=== PATIENT | male | born 1970 | race Caucasian/White ===

== ENCOUNTER 2017-04-24 14:37 | Emergency (ER) | payer BC ==
[~2017-04-24] VITALS: Ht 180.3 cm; Wt 94.0 kg
[2017-04-24 14:41] VITALS: TEMP 36.6; Ht 180.3 cm; Wt 94.0 kg
[2017-04-24] MEDS ORDERED: OPTIRAY 320 IV PRN (15:00)
[2017-04-24 15:38] LABS: ISTAT CREATININE 0.8 mg/dl (0.6-1.3); ISTAT IONIZED CALCIUM 1.25 mmol/l (1.12-1.32)
--- NOTE | 2017-04-24 16:08 | EMERGENCY ROOM VISIT NOTE ---
History Report prepared by Chandler: Sarika Cool Under the Supervision of: Dr. Chava Morgan M.D. First contact with patient: 14:47 Chief Complaint: RECTAL PAIN Stated Complaint: PAIN FROM HEMMEROIDS Nursing Triage Summary: triage note; pt reports "i think i have hemorrhoids or a tear." pt was seen at urgent care on wednesday and was told to follow up with pcp and they were going to treat pt for hemorroids. History of Present Illness The patient is a 47 year old male who presents to the Emergency Room with complaints of intermittent rectal pain beginning 1 week ago. The patient states that he has been having rectal pain that is worse with bowel movements for the last few days. He reports that hew as seen at urgent care 4 days ago and was told to follow up if he did not have any improvement of his pain with a stool softener. He complains of blood in the stool last night. The patient denies any constipation, abdominal pain, nausea, vomiting. He notes that he has bowel movements twice a day. Source of History: patient Onset: 1 week ago Position: other (rectum) Symptom Intensity: severe Timing: intermittent Modifying Factors (Worsening): other (bowel movements) Associated Symptoms: No nausea, No vomiting, No abdominal pain Note: He complains of blood in the stool last night. The patient denies any constipation. Review of Systems See HPI for pertinent positives & negatives. A total of 10 systems reviewed and were otherwise negative. Past Medical & Surgical Medical Problems: (1) No known problems Family History No pertinent family history stated. Social History Smoking Status: Never Smoker Marital Status: Housing Status: lives with family Occupation Status: employed Current/Historical Medications No Active Prescriptions or Reported Meds Allergies Coded Allergies: No Known Allergies (Unverified , 04/24/17) Physical Exam Vital Signs Date Time Temp Pulse Resp B/P (MAP) Pulse Ox O2 Delivery O2 Flow Rate FiO2 04/24/17 17:24 78 20 157/98 98 Room Air 04/24/17 14:41 36.6 85 18 153/90 97 Room Air Physical Exam CONSTITUTIONAL/VITAL SIGNS: Reviewed / noted above. GENERAL: Non-toxic in appearance. INTEGUMENTARY: Warm, dry, and [place]. HEAD: Normocephalic. EYES: without scleral icterus or trauma. ENT/OROPHARYNX: clear and moist. LYMPHADENOPATHY/NECK: Is supple without lymphadenopathy or meningismus. RESPIRATORY: Lungs clear and equal. CARDIOVASCULAR: Regular rate and rhythm. GI/ABDOMEN: Soft and nontender. No organomegaly or pulsatile mass. No rebound or guarding. Normal bowel sounds. EXTREMITIES: Warm and well perfused. BACK: No CVA tenderness. NEUROLOGICAL: Intact without focal deficits. PSYCHIATRIC: normal affect. MUSCULOSKELETAL: Normally developed with good muscle tone. RECTAL: Thrombosed external hemorrhoid at the 3 oclock position with tenderness on exam. Medical Decision & Procedures ER Provider Diagnostic Interpretation: CT results as stated below per my review and radiologist interpretation: PELVIS W/IV CONT ONLY (CT) FINDINGS: Perirectal region is unremarkable. There is no evidence of perirectal abscess. The levator sling is intact. The cutaneous fat shows unremarkable dense density characteristics. Bowel pattern within the pelvis is nonobstructive. Bladder is midline. There is no free fluid within the pelvic cul-de-sac. Osseous structures appear unremarkable. IMPRESSION: Negative study. No evidence for perirectal pathology or infiltrative change based on CT criteria. The above report was generated using voice recognition software. It may contain grammatical, syntax or spelling errors. Electronically signed by: Baldomero Long M.D. 04/24/2017 4:37 PM Dictated Date/Time: 04/24/2017 4:34 PM Laboratory Results Test 04/24/17 15:11 Bedside Hemoglobin 17.0 g/dl (14.0-18.0) Bedside Hematocrit 50 % (42-52) Bedside Sodium 138 mEq/L (135-144) Bedside Potassium 3.9 mEq/L (3.3-5.0) Bedside Chloride 99 mEq/L (101-112) Bedside Total CO2 26 mEq/l (24-31) Anion Gap 17.0 mmol/L (16-25) Bedside Blood Urea Nitrogen 11 mg/dl (7-18) Bedside Creatinine 0.8 mg/dl (0.6-1.3) Bedside Glucose (other) 283 mg/dl (70-99) Bedside Ionized Calcium (Sukumar) 1.25 mmol/l (1.12-1.32) Laboratory results as stated above per my review. ED Course 1448: Previous medical records were reviewed. The patient was evaluated in room B8. A complete history and physical examination was performed. 1710: I reevaluated and updated the patient. 1715: Lidocaine/Epinephrine 20ml INFIL. 1727: On reevaluation, the patient is doing well. I discussed the results and findings with the patient. He verbalized agreement of the treatment plan. The patient was discharged home. Medical Decision Differential includes thrombosed hemorrhoid, rectal fissures, abscess, infection , Crohn's disease, ulcerative colitis,. This is a 47-year-old male who presents to the ED with a chief complaint of rectal pain. The patient has had the pain for about a week. He states that his pain is primarily with bowel movements. He denies any other significant symptoms. Has not had fevers, nausea, vomiting or abdominal pain. His vital signs are stable. His physical exam reveals a small thrombosed hemorrhoid in the 3 o'clock position. His exam is quite tender. His abdomen is soft and nontender. The rest of his exam was unremarkable. Point of care glucose was 283. Hemoglobin is normal. Chemistry panel kidney function are normal. CT scan did not show any abnormalities with regards to perirectal abscess or infection. The patient's symptoms are likely only secondary to a thrombosed hemorrhoid. The patient was also told about his elevated blood sugar. He states that it has been running high. He was advised to see his doctor about diabetes and blood sugar control. After discussing the benefits versus possible lack of benefit of incising thrombosed hemorrhoid since it has been greater than 72 hours, the patient decided on following up as an outpatient with general surgery. He was told to take [id number] pain medications and a stool softener. He is felt to be stable for discharge. Medication Reconcilliation Current Medication List: was personally reviewed by me Blood Pressure Screening Patient's blood pressure: Elevated blood pressure Blood pressure disposition: Elevated BP felt to be situational Impression Primary Impression: Hyperglycemia Additional Impression: Thrombosed external hemorrhoid Scribe Attestation The scribe's documentation has been prepared under my direction and personally reviewed by me in its entirety. I confirm that the note above accurately reflects all work, treatment, procedures, and medical decision making performed by me. Departure Information Dispostion Home / Self-Care Prescriptions No Active Prescriptions or Reported Meds Referrals No Doctor, Assigned (PCP) Moncho Parker M.D. Forms HOME CARE DOCUMENTATION FORM, IMPORTANT VISIT INFORMATION, WORK / SCHOOL INSTRUCTIONS Patient Instructions ED Hyperglycemia New Susp Diabetes, Hemorrhoids Thrombosed, My [facility] Additional Instructions Your blood tests revealed your blood sugar to be 283. This is concerning for diabetes. See your doctor this week for recheck. Drink plenty of fluids. Follow-up with [facility], Dr. Parker listed above, for further evaluation of your thrombosed hemorrhoid. Apply cortisone/hemorrhoid cream as you're doing now. Use a stool softener. Take Tylenol or Motrin as needed for pain. Problem Qualifiers
--- NOTE | 2017-04-24 16:38 | DIAGNOSTIC IMAGING REPORT ---
PELVIS W/IV CONT ONLY (CT) CLINICAL HISTORY: Rectal pain hemorrhage TECHNIQUE: Transaxial acquisition. Multi axial reformatted images. COMPARISON STUDY: None FINDINGS: Perirectal region is unremarkable. There is no evidence of perirectal abscess. The levator sling is intact. The cutaneous fat shows unremarkable dense density characteristics. Bowel pattern within the pelvis is nonobstructive. Bladder is midline. There is no free fluid within the pelvic cul-de-sac. Osseous structures appear unremarkable. IMPRESSION: Negative study. No evidence for perirectal pathology or infiltrative change based on CT criteria. The above report was generated using voice recognition software. It may contain grammatical, syntax or spelling errors. Electronically signed by: Baldomero Long M.D. 04/24/2017 4:37 PM Dictated Date/Time: 04/24/2017 4:34 PM
[2017-04-24] MEDS ORDERED: LIDOCAINE/EPINEPHRINE 1% 20 ML VIAL INFIL ONE (17:15)
[2017-04-24 17:24] VITALS: BP 157/98; PULSE 78; O2SAT 98
== END 2017-04-24 17:36 | disposition home or self-care (01) ==
LOC: C.EDB 14:38
DX: R73.9 Hyperglycemia, unspecified (principal); K64.5 Perianal venous thrombosis

== ENCOUNTER → 2017-04-29 | Outpatient (CLI) | payer BC ==
[2017-04-29 12:23] LABS: BASO % 0.3 %; BASO ABS # 0.02 K/uL (0-0.2); COMPLETE YES; EOS % 1.6 %; HEMATOCRIT 44.8 % (42-52); IG% 0.3 %; LYMPH % 29.3 %; LYMPH ABS # 1.96 K/uL (1.2-3.4); MEAN CELL VOLUME 86.7 fL (80-100); MEAN CORPUSCULAR HEMOGLOBIN 29.8 pg (25-34); MEAN CORPUSCULAR HGB CONC 34.4 g/dl (32-36); MEAN PLATELET VOLUME 10.9 fL (7.4-10.4); MONO % 9.9 %; NEUT % 58.6 %; PLATELET COUNT 243 K/uL (130-400); RED BLOOD COUNT 5.17 M/uL (4.7-6.1)
[2017-04-29 12:50] LABS: ALT/SGPT 26 U/L (12-78); BLOOD UREA NITROGEN 14 mg/dl (7-18); BUN/CREATININE RATIO 15.2 (10-20); CALCIUM 9.2 mg/dl (8.5-10.1); CARBON DIOXIDE 26 mmol/L (21-32); CHLORIDE 104 mmol/L (98-107); CHOLESTEROL 207 mg/dl (0-200); CREATININE 0.91 mg/dl (0.60-1.40); GLUCOSE 201 mg/dl (70-99); POTASSIUM 3.9 mmol/L (3.5-5.1); SODIUM 137 mmol/L (136-145)
[2017-04-29 12:55] LABS: ESTIMATED AVERAGE GLUCOSE 309 mg/dl; HA1C FLAG Normal (Normal)
[2017-04-29 12:59] LABS: ALB/GLOB RATIO 1.2 (0.9-2); ALKALINE PHOSPHATASE 98 U/L (45-117); AST/SGOT 15 U/L (15-37); CHOLESTEROL/HDL RATIO 5.4; HDL CHOLESTEROL 38 mg/dl; LDL CHOLESTEROL CALCULATED 146 mg/dl; TRIGLYCERIDES 117 mg/dl (0-150); VERY LOW DENSITY LIPOPROT CALC 23 mg/dl
== END | disposition home or self-care (01) ==
LOC: C.LABBFT 09:47
PROVIDERS: ATTEND Physician Assistant Medical
DX: R73.9 Hyperglycemia, unspecified (principal)

== ENCOUNTER → 2017-08-13 | Outpatient (CLI) | payer BC, OTHER ==
[2017-08-13 15:43] LABS: CREATININE RANDOM URINE 57.3 mg/dl
[2017-08-14 07:23] LABS: HEMOGLOBIN A1C 6.4 % (4.5-5.6)
== END | disposition home or self-care (01) ==
LOC: C.LAB1850 14:16
PROVIDERS: ATTEND Nurse Practitioner Family
DX: E11.9 Type 2 diabetes mellitus without complications (principal)

== ENCOUNTER 2021-07-24 12:28 | Inpatient (IN) ==
[2021-07-24] MEDS ORDERED: SODIUM CHLORIDE 0.9% 1000ML 2,000 ML IV ONE (12:50)
--- NOTE | 2021-07-24 13:04 | Emergency Department Note ---
Impression & Plan Pneumonia due to COVID-19 virus, Hypoxia, Weakness ED Provider Note NAME: ANAID LAMBERT AGE: 51 SEX: M : 1970 ARRIVES VIA: Ambulance INFORMANT: Patient ED PROVIDER(S): Jay Teran DO CHIEF COMPLAINT:covid PNA HPI: Patient is a 51-year-old unvaccinated gentleman who presents to the ER for weakness. He is Covid positive. Symptoms started last Wednesday. He was seen and evaluated in the ER. He was hypoxic and was discharged on home oxygen and steroids. He notes the shortness of breath has gotten slightly worse and is very lightheaded and cannot get up and move around. He admits to headache. He denies any new chest pain or significant worsening shortness of breath since this started. No belly pain, nausea, vomiting, or diarrhea. No dysuria, urgency, or frequency. He has not been eating or drinking much of anything at all. Any movement he feels like he is going to pass out. ROS: See above HPI for pertinent positives & negatives. A total of 10 systems reviewed and were otherwise negative. PAST MEDICAL HISTORY:See Below PAST SURGICAL HISTORY:See Below FAMILY HISTORY:See Below SOCIAL HISTORY:See Below HOME MEDICATIONS:See Below ALLERGIES:See Below VITALS:See Below PHYSICAL EXAMINATION: GENERAL: Sitting up in bed, alert, ill appearing moderate distress, on NC EYE EXAM: normal conjunctiva. PERRL and EOM's grossly intact. OROPHARYNX: no exudate, no erythema, lips, buccal mucosa, and tongue normal and mucous membranes are moist NECK: supple, no nuchal rigidity, no adenopathy, non-tender LUNGS: Clear to auscultation. Normal chest wall mechanics HEART: no murmurs, S1 normal and S2 normal ABDOMEN: abdomen soft, non-tender, normo-active bowel sounds, no masses, no rebound or guarding. UPPER EXTREMITIES: upper extremities are grossly normal. LOWER EXTREMITIES: No pitting edema. NEURO EXAM: Normal sensorium, cranial nerves II-XII grossly intact, normal speech, no gross weakness of arms, no gross weakness of legs. MEDICAL DECISION MAKING: Patient is a 51-year-old male who presents the ER known Covid positive. He is hypoxic and was initially discharged on 1 L is currently on 2 to 3 L. Labs show no significant leukocytosis or anemia. BMP along with LFTs bilirubin was unremarkable. Troponin lipase was negative. Patient was given 2 L of IV fluids. Chest x-ray shows bilateral infiltrates. Patient was given IV fluids. He is already on Decadron. He was discussed with the hospitalist admitted for further work-up. Triage Nursing notes reviewed. Limited review of prior medical records performed Vital Signs: reviewed and remarkable for hypoxic and HTN Differential diagnosis: Differential diagnoses includes but is not limited to pneumonia, bronchitis, COPD/Asthma exacerbation, pneumothorax, pulmonary embolism, congestive heart bob lure, acute coronary syndrome ER treatment provided: See below Diagnostics interpreted by me: ECG: Sinus rhythm rate 88 Normal axis No PVCs T wave inversion lead III QTC 425 Cardiac Monitoring: An order was placed for continuous cardiac monitoring. The monitor shows a rate of 90 with sinus rhythm. Laboratory studies: As stated above and show below. Imaging studies: Chest x-ray shows bilateral infiltrates Consultation(s): Discussed with hospitalist for further evaluation Procedures: none Critical Care: None Past Med/Surg History Medical History Diabetes Hyperlipidemia Surgical History History of cholecystectomy Family History Father Cancer Mother Cancer Brother Hypertension Social History Smoking Status: Former smoker Hx Alcohol Use: Yes Hx Substance Use: No marital status: Feels Safe at Home: Yes Allergies Allergies Allergy/AdvReac Type Severity Reaction Status Date / Time No Known Allergies Allergy Unverified 06/16/21 09:59 Home Meds Home Medications Medication Instructions Recorded Confirmed atorvastatin 10 mg tablet 10 mg PO QPM 06/19/19 07/24/21 Members Choice meter 04/24/21 04/24/21 metformin 1,000 mg tablet 1,000 mg PO BID 04/24/21 07/24/21 insulin degludec 100 unit/mL (3 10 unit SUBCUT DAILY ml 06/16/21 07/24/21 mL) subcutaneous pen (Tresiba FlexTouch U-100 insulin) Previous Rx's Medication Instructions Recorded pen needle, diabetic 32 gauge x #100 ea 04/24/2132" (BD Ultra-Fine Tonya Pen Needle) dexamethasone 6 mg tablet 6 mg PO DAILY #10 tab 07/21/21 albuterol sulfate 90 mcg/actuation 2 puffs INH Q4H PRN #8 gm 07/22/21 aerosol inhaler Results & Data (ED) Vital Signs Vital Signs - 24 hr 07/24/21 12:12 07/24/21 12:51 07/24/21 12:56 Temperature 37.4 C Temperature Source Oral Pulse Rate 93 H 89 83 Pulse Rate from SpO2 Sensor 83 Pulse Rhythm Regular Regular Pulse Strength Normal Respiratory Rate 20 20 23 Respiratory Effort / Characteristics Non-Labored Respiratory Depth Normal Blood Pressure 141/80 H Blood Pressure Mean 100 Pulse Oximetry 97 96 95 Oxygen Delivery Method Nasal Cannula Nasal Cannula Oxygen Flow Rate 2 2 Sepsis Recent Fever Within 48 Hours No Sepsis New/Unexplained Change in Mental Status N/A Sepsis Action Taken by Nursing No Action Required 07/24/21 13:00 07/24/21 13:10 07/24/21 13:20 Temperature Temperature Source Pulse Rate 98 H 82 88 Pulse Rate from SpO2 Sensor 97 H 82 89 Pulse Rhythm Pulse Strength Respiratory Rate 19 21 32 H Respiratory Effort / Characteristics Respiratory Depth Blood Pressure 135/84 Blood Pressure Mean 101 Pulse Oximetry 97 96 93 Oxygen Delivery Method Oxygen Flow Rate Sepsis Recent Fever Within 48 Hours Sepsis New/Unexplained Change in Mental Status Sepsis Action Taken by Nursing 07/24/21 13:30 07/24/21 13:40 07/24/21 13:50 Temperature Temperature Source Pulse Rate 88 111 H 83 Pulse Rate from SpO2 Sensor 89 99 H 82 Pulse Rhythm Pulse Strength Respiratory Rate 7 L 17 0 L Respiratory Effort / Characteristics Respiratory Depth Blood Pressure 130/73 Blood Pressure Mean 92 Pulse Oximetry 93 90 92 Oxygen Delivery Method Oxygen Flow Rate Sepsis Recent Fever Within 48 Hours Sepsis New/Unexplained Change in Mental Status Sepsis Action Taken by Nursing 07/24/21 14:00 07/24/21 14:10 07/24/21 14:20 Temperature Temperature Source Pulse Rate 85 84 83 Pulse Rate from SpO2 Sensor 86 84 82 Pulse Rhythm Pulse Strength Respiratory Rate 3 L 0 L 0 L Respiratory Effort / Characteristics Respiratory Depth Blood Pressure 158/82 H Blood Pressure Mean 107 Pulse Oximetry 91 89 L 93 Oxygen Delivery Method Oxygen Flow Rate Sepsis Recent Fever Within 48 Hours Sepsis New/Unexplained Change in Mental Status Sepsis Action Taken by Nursing 07/24/21 14:30 07/24/21 14:40 07/24/21 14:50 Temperature Temperature Source Pulse Rate 98 H 80 89 Pulse Rate from SpO2 Sensor 95 H 78 89 Pulse Rhythm Pulse Strength Respiratory Rate 32 H 0 L 35 H Respiratory Effort / Characteristics Respiratory Depth Blood Pressure 124/89 Blood Pressure Mean 100 Pulse Oximetry 92 94 89 L Oxygen Delivery Method Oxygen Flow Rate Sepsis Recent Fever Within 48 Hours Sepsis New/Unexplained Change in Mental Status Sepsis Action Taken by Nursing 07/24/21 15:00 Temperature Temperature Source Pulse Rate 81 Pulse Rate from SpO2 Sensor 82 Pulse Rhythm Pulse Strength Respiratory Rate 6 L Respiratory Effort / Characteristics Respiratory Depth Blood Pressure 137/76 Blood Pressure Mean 96 Pulse Oximetry 92 Oxygen Delivery Method Oxygen Flow Rate Sepsis Recent Fever Within 48 Hours Sepsis New/Unexplained Change in Mental Status Sepsis Action Taken by Nursing Laboratory Data Result diagrams: 07/24/21 13:40 07/24/21 13:40 Lab Results 07/24/21 07/24/21 07/24/21 Range/Units 13:40 13:40 13:40 WBC 5.88 (4.8-10.8) K/uL RBC 4.39 L (4.7-6.1) M/uL Hgb 13.1 L (14.0-18.0) g/dL Hct 39.2 L (42-52) % MCV 89.3 (80-100) fL MCH 29.8 (25-34) pg MCHC 33.4 (32-36) g/dL RDW Std Deviation 41.4 (36.4-46.3) fL RDW Coeff of Gutierrez 12.7 (11.5-14.5) % Plt Count 192 (130-400) K/uL MPV 9.9 (7.4-10.4) fL Immature Gran % (Auto) 0.5 % Neut % (Auto) 82.5 % Lymph % (Auto) 8.8 % Divide % (Auto) 8.2 % Eos % (Auto) 0.0 % Baso % (Auto) 0.0 % Neut # (Auto) 4.85 (1.4-6.5) K/uL Lymph # (Auto) 0.52 L (1.2-3.4) K/uL Divide # (Auto) 0.48 (0.11-0.59) K/uL Eos # (Auto) 0.00 (0-0.5) K/uL Baso # (Auto) 0.00 (0-0.2) K/uL Immature Gran # (Auto) 0.03 H (0.00-0.02) K/uL Sodium 138 (136-145) mmol/L Potassium 4.3 (3.5-5.1) mmol/L Chloride 107 (98-107) mmol/L Carbon Dioxide 26 (21-32) mmol/L Anion Gap 5.0 (3-11) BUN 15 (7-18) mg/dl Creatinine 0.99 (0.6-1.4) mg/dl Est Cr Clr Drug Dosing Not Reportable Est GFR ( Amer) 101.8 ml/min Est GFR (Non-Af Amer) 87.8 ml/min BUN/Creatinine Ratio 15.3 (10-20) Glucose 126 H (70-99) mg/dl Calcium 8.3 L (8.5-10.1) mg/dl Phosphorus 2.3 L (2.5-4.9) mg/dl Total Bilirubin 0.4 (0.2-1) mg/dl AST 27 (15-37) U/L ALT 44 (12-78) Alkaline Phosphatase 66 (45-117) U/L Troponin I < 0.015 (0-0.045) ng/ml C-Reactive Protein 2.49 H (0-0.29) mg/dl Total Protein 6.3 L (6.4-8.2) gm/dl Albumin 2.6 L (3.4-5.0) gm/dl Globulin 3.7 (2.5-4.0) gm/dl Albumin/Globulin Ratio 0.7 L (0.9-2) Lipase 215 (73-393) U/L Procalcitonin (0-0.5) ng/ml 07/24/21 Range/Units 13:41 WBC (4.8-10.8) K/uL RBC (4.7-6.1) M/uL Hgb (14.0-18.0) g/dL Hct (42-52) % MCV (80-100) fL MCH (25-34) pg MCHC (32-36) g/dL RDW Std Deviation (36.4-46.3) fL RDW Coeff of Gutierrez (11.5-14.5) % Plt Count (130-400) K/uL MPV (7.4-10.4) fL Immature Gran % (Auto) % Neut % (Auto) % Lymph % (Auto) % Divide % (Auto) % Eos % (Auto) % Baso % (Auto) % Neut # (Auto) (1.4-6.5) K/uL Lymph # (Auto) (1.2-3.4) K/uL Divide # (Auto) (0.11-0.59) K/uL Eos # (Auto) (0-0.5) K/uL Baso # (Auto) (0-0.2) K/uL Immature Gran # (Auto) (0.00-0.02) K/uL Sodium (136-145) mmol/L Potassium (3.5-5.1) mmol/L Chloride (98-107) mmol/L Carbon Dioxide (21-32) mmol/L Anion Gap (3-11) BUN (7-18) mg/dl Creatinine (0.6-1.4) mg/dl Est Cr Clr Drug Dosing Est GFR ( Amer) ml/min Est GFR (Non-Af Amer) ml/min BUN/Creatinine Ratio (10-20) Glucose (70-99) mg/dl Calcium (8.5-10.1) mg/dl Phosphorus (2.5-4.9) mg/dl Total Bilirubin (0.2-1) mg/dl AST (15-37) U/L ALT (12-78) Alkaline Phosphatase (45-117) U/L Troponin I (0-0.045) ng/ml C-Reactive Protein (0-0.29) mg/dl Total Protein (6.4-8.2) gm/dl Albumin (3.4-5.0) gm/dl Globulin (2.5-4.0) gm/dl Albumin/Globulin Ratio (0.9-2) Lipase (73-393) U/L Procalcitonin 0.17 (0-0.5) ng/ml Administered Medications Discontinued Medications Furosemide (Furosemide 40 Mg/4 Ml Vial) 40 mg IV ONE ONE Stop: 07/24/21 15:31 Last Admin: 07/24/21 15:44 Dose: 40 mg Documented by: [id number] Sodium Chloride (Nss 1000ml) 2,000 mls @ 999 mls/hr IV .Q2H1M ONE Stop: 07/24/21 14:50 Last Admin: 07/24/21 13:03 Dose: 999 mls/hr Documented by: [id number] Remdesivir 200 mg/ Sodium (Chloride) 250 mls @ 125 mls/hr IV ONE STA; Protocol Stop: 07/24/21 17:09 Last Admin: 07/24/21 15:43 Dose: 125 mls/hr Documented by: [id number] Imaging Data Radiologist's Impression: Chest X-Ray 07/24/21 12:51 XR chest 1V portable HISTORY: Atypical Chest Pain COMPARISON: Chest 07/21/2021. FINDINGS: There are low lung volumes. No pneumothorax. No pleural effusions. The heart is top normal in size. Patchy bilateral airspace opacities have slightly progressed. IMPRESSION: Slight progression of the patchy bilateral airspace opacities consistent with a viral pneumonia. ACT 112: Negative or not required by law. Electronically signed by: Matthieu Pozo M.D. 07/24/2021 1:10 PM Discharge Plan Visit Data Chief Complaint: Weakness Stated Complaint: WEAKNESS, DIZZINESS, COVID + ED Provider: Jay Teran Discharge Problem: Pneumonia due to COVID-19 virus, Hypoxia, Weakness Patient Disposition: Admitted As Inpatient Discharge Instructions Interventions: ED Discharge Assessment Last Done: 07/24/21 17:41
--- NOTE | 2021-07-24 13:12 | XRay Report ---
XR chest 1V portable HISTORY: Atypical Chest Pain COMPARISON: Chest 07/21/2021. FINDINGS: There are low lung volumes. No pneumothorax. No pleural effusions. The heart is top normal in size. Patchy bilateral airspace opacities have slightly progressed. IMPRESSION: Slight progression of the patchy bilateral airspace opacities consistent with a viral pneumonia. ACT 112: Negative or not required by law. Electronically signed by: Matthieu Pozo M.D. 07/24/2021 1:10 PM
[2021-07-24 13:50] LABS: Hematocrit (blood only) 39.2 % (42-52); Hemoglobin 13.1 g/dL (14.0-18.0); Immature Granulocytes # (auto) 0.03 K/uL (0.00-0.02); Immature Granulocytes % (auto) 0.5 %; Lymphocytes # (auto) 0.52 K/uL (1.2-3.4); Lymphocytes % (auto) 8.8 %; Mean Corpuscular Hemoglobin 29.8 pg (25-34); Mean Corpuscular Hgb Conc 33.4 g/dL (32-36); Mean Corpuscular Volume 89.3 fL (80-100); Mean Platelet Volume 9.9 fL (7.4-10.4); Monocytes # (auto) 0.48 K/uL (0.11-0.59); Monocytes % (auto) 8.2 %; Neutrophils # (auto) 4.85 K/uL (1.4-6.5); Neutrophils % (auto) 82.5 %; Platelet Count 192 K/uL (130-400); RDW Coefficient of Variation 12.7 % (11.5-14.5); RDW Standard Deviation 41.4 fL (36.4-46.3); Red Blood Count 4.39 M/uL (4.7-6.1); White Blood Count 5.88 K/uL (4.8-10.8)
[2021-07-24 14:11] LABS: Alanine Aminotransferase 44 (12-78); Albumin Level 2.6 gm/dl (3.4-5.0); Aspartate Aminotransferase 27 U/L (15-37); BUN Creatinine Ratio 15.3 (10-20); Blood Urea Nitrogen 15 mg/dl (7-18); Calcium 8.3 mg/dl (8.5-10.1); Carbon Dioxide 26 mmol/L (21-32); Chloride 107 mmol/L (98-107); Est GFR (African American) 101.8 ml/min; Est GFR (Non-African American) 87.8 ml/min; Glucose 126 mg/dl (70-99); Lipase 215 U/L (73-393); Potassium 4.3 mmol/L (3.5-5.1); Sodium 138 mmol/L (136-145)
[2021-07-24 14:16] LABS: Albumin Globulin Ratio 0.7 (0.9-2); Alkaline Phosphatase 66 U/L (45-117); Bilirubin,Total 0.4 mg/dl (0.2-1); Globulin 3.7 gm/dl (2.5-4.0); Total Protein 6.3 gm/dl (6.4-8.2); Troponin I < 0.015 ng/ml (0-0.045)
--- NOTE | 2021-07-24 14:39 | History & Physical Report ---
Date of Service July 24, 2021 Assessment & Plan (1) Pneumonia due to COVID-19 virus: Plan: - COVID-19 positive as of Jul 21, symptoms started on Jul 19, currently 5 days out - Procalcitonin, CRP and lactate ordered, follow - Lymphocytes 0.52, neutrophils 4.85 - CXR reviewed: Slight progression of the patchy bilateral airspace opacities consistent with a viral pneumonia. - O2 sats - 89 % on 2 L - WBC 5.88 - Remdesivir 200 mg IV x 1 then 100 mg daily therafter, decadron 6 mg IV daily ( has already taken decadron at home from jul 21-). If pt needs convalescent plasma then will ask attending to obtain consent. - Unvaccinated - Continue pulmonary toilet with mucinex, tessalon pearls, incentive spirometer and flutter, albuterol inhaler, proning 30 minutes as tolerated (2) Hypoxia: Plan: -Secondary to Covid 19 pneumonia -As above (3) Diabetes type 2, controlled: Plan: -DM II -Maintained at home on Metformin and tresiba, will hold for now -A1c with a.m. labs -Continue Lantus 10 units while holding at home Tresiba (4) Hypertension: Plan: - Not on home antihypertensives, monitor BP here, currently slightly elevated at 158/82. Can use IV hydralazine if SBP> 180. Encourage po hydration as pt reports poor po intake, possible slightly dehydrated. (5) Dyslipidemia: Plan: - Cont statin therapy with atorvastatin 10 mg daily DVT ppx: - teds, scds, Lovenox subcu CODE: Full code Dispo: From home, likely to remain in the hospital x 1-2 days History of Present Illness Primary Care Provider: Omar Lee MD This is a 51-year-old male with PMHx of DM type II, HTN, HLD, who presented to the ER on 07/21/2002/02/2021 and found to be Covid-19 positive. He is unvaccinated. At that point time he was hypoxic with O2 sats in the low 90s and was able to be sent home on 2 L. He was also given an albuterol inhaler along with a dexamethasone pack. He last took steroid yesterday. Despite these measures, the patient has continued to decline, now O2 sats are maintaining at 87-89% on 2L in the ER. He developed symptoms on Jul 19 which included, weakness, nausea, loss of taste and smell, and lightheadedness, dizziness, but denies falls. He has poor oral intake, but is urinating without issues. He admits to having diarrhea x 1 day. He lives at home with his who does not have any symptoms. Denies any prior lung diseases. Was wearing oxygen at home, and using albuterol inhaler but didn't seem to improve his symptoms. He was prescribed dexamethasone pack on the , last dose was yesterday. Allergies Allergy/AdvReac Type Severity Reaction Status Date / Time No Known Allergies Allergy Unverified 06/16/21 09:59 Home Medications Medication Instructions Recorded Confirmed Type atorvastatin 10 mg tablet 10 mg PO QPM 06/19/19 07/24/21 History Members Choice meter 04/24/21 04/24/21 History metformin 1,000 mg tablet 1,000 mg PO BID 04/24/21 07/24/21 History pen needle, diabetic 32 gauge x #100 ea 04/24/21 06/16/21 Rx 5/32" (BD Ultra-Fine Tonya Pen Needle) insulin degludec 100 unit/mL (3 10 unit SUBCUT DAILY ml 06/16/21 07/24/21 History mL) subcutaneous pen (Tresiba FlexTouch U-100 insulin) dexamethasone 6 mg tablet 6 mg PO DAILY #10 tab 07/21/21 07/24/21 Rx albuterol sulfate 90 mcg/actuation 2 puffs INH Q4H PRN #8 gm 07/22/21 07/24/21 Rx aerosol inhaler Past Med/Surg History Medical History Diabetes Hyperlipidemia Surgical History History of cholecystectomy Family History Father Cancer Mother Cancer Brother Hypertension Social History Smoking Status: Former smoker Hx Alcohol Use: Yes Hx Substance Use: No marital status: Feels Safe at Home: Yes Review of Systems Review of Systems: Constitutional: No fever, sweats or chills, + generalized weakness, lightheadedness, and dizziness as per HPI. Eyes: No diplopia, no worsening or blurred vision ENT: normal hearing, no trouble swallowing Respiratory: + cough, sputum, +dyspnea at rest and on exertion Cardiovascular: No chest pain, tightness or palpitations Abdomen: No pain, + nausea, no vomiting, + diarrhea, no constipation Musculoskeletal: No joint pain, calf pain, swelling Neurologic: + generalized weakness, no numbness/tingling or balance problems Psychiatric: No anxiety or depression Skin: No rash or itch Physical Exam Physical Exam: Please refer to attending addendum as I did not see the patient in person due to being COVID-19 positive. Results & Data Results & Data ([facility]) Vital Signs (Past 12 Hours) Vital Signs Temp Pulse Resp BP Pulse Ox 07/24/21 14:10 84 0 L 89 L 07/24/21 14:00 85 3 L 158/82 H 91 07/24/21 13:50 83 0 L 92 07/24/21 13:40 111 H 17 90 07/24/21 13:30 88 7 L 130/73 93 07/24/21 13:20 88 32 H 93 07/24/21 13:10 82 21 96 07/24/21 13:00 98 H 19 135/84 97 07/24/21 12:56 83 23 95 07/24/21 12:51 89 20 96 07/24/21 12:12 37.4 C 93 H 20 141/80 H 97 Laboratory Results 07/24/21 07/24/21 13:40 13:40 WBC 5.88 RBC 4.39 L Hgb 13.1 L Hct 39.2 L MCV 89.3 MCH 29.8 MCHC 33.4 RDW Std Deviation 41.4 RDW Coeff of Gutierrez 12.7 Plt Count 192 MPV 9.9 Immature Gran % (Auto) 0.5 Neut % (Auto) 82.5 Lymph % (Auto) 8.8 [place] % (Auto) 8.2 Eos % (Auto) 0.0 Baso % (Auto) 0.0 Neut # (Auto) 4.85 Lymph # (Auto) 0.52 L [place] # (Auto) 0.48 Eos # (Auto) 0.00 Baso # (Auto) 0.00 Immature Gran # (Auto) 0.03 H Sodium 138 Potassium 4.3 Chloride 107 Carbon Dioxide 26 Anion Gap 5.0 BUN 15 Creatinine 0.99 Est Cr Clr Drug Dosing Not Reportable Est GFR ( Amer) 101.8 Est GFR (Non-Af Amer) 87.8 BUN/Creatinine Ratio 15.3 Glucose 126 H Calcium 8.3 L Total Bilirubin 0.4 AST 27 ALT 44 Alkaline Phosphatase 66 Troponin I < 0.015 Total Protein 6.3 L Albumin 2.6 L Globulin 3.7 Albumin/Globulin Ratio 0.7 L Lipase 215 Diagnostic Findings Chest X-Ray 07/24/21 12:51 XR chest 1V portable HISTORY: Atypical Chest Pain COMPARISON: Chest 07/21/2021. FINDINGS: There are low lung volumes. No pneumothorax. No pleural effusions. The heart is top normal in size. Patchy bilateral airspace opacities have slightly progressed. IMPRESSION: Slight progression of the patchy bilateral airspace opacities consistent with a viral pneumonia. ACT 112: Negative or not required by law. Electronically signed by: Matthieu Pozo M.D. 07/24/2021 1:10 PM ECG Additional Comments: 24-JUL-2021 12:40:54 [facility]-EDSTAT ROUTINE RETRIEVAL Normal sinus rhythm Normal ECG When compared with ECG of 21-JUL-2021 15:23, No significant change was found 25mm/s 10mm/mV 150Hz 9.0.9 12SL 241 JOSEPHINE: 16 Referred by: REFERRED SELF Unconfirmed Vent. rate 88 BPM SD interval 130 ms QRS duration 98 ms QT/QTc 352/425 ms Code Status & VTE Plan Code Status Full - Supervising Physician Co-Signing Physician Notes Attending addendum: The patient was seen and examined in emergency room He was diagnosed with COVID-19 virus on in the emergency room and was given Decadron and was sent home He has been complaining of more shortness of breath and cough and profound weakness since then Has been requiring 2 to 4 L of oxygen to maintain saturation He will be admitted for COVID-19 virus pneumonia On examination Lying in bed with extreme tiredness and fatigue Minimal shortness of breath at rest Chest-decreased breath sounds bilaterally especially at the bases with minimal crackles Heart-S1-S2, regular Extremities-no edema Abdomen-benign CNSalert, awake and oriented x3. Generally weak but no focal sensory no motor deficit appreciated His admission labs, EKG and imaging studies reviewed Has COVID-19 virus infection with pneumonia and he is not vaccinated He will qualify for dexamethasone and remdesivir for now-monitor CRP and oxygen requirement Agree with assessment plan as outlined above by MARTI Yee Dr
[2021-07-24] MEDS ORDERED: REMDESIVIR 200 MG in SODIUM CHLORIDE 0.9% 210 ML IV STA (15:10)
[2021-07-24] MEDS ORDERED: FUROSEMIDE 40 MG/4 ML VIAL IV ONE (15:30)
[2021-07-24] MEDS ORDERED: HYDROcodone/HOMATROPINE SYRUP 5MG/1.5MG 5ML UDP PO PRN (15:30)
[2021-07-24 16:03] LABS: C Reactive Protein 2.49 mg/dl (0-0.29); Phosphorus 2.3 mg/dl (2.5-4.9)
[2021-07-24 19:45] LABS: Magnesium 1.7 mg/dl (1.8-2.4)
[2021-07-24] MEDS ORDERED: LANTUS PER UNIT CHARGE SQ SCH (21:00)
[2021-07-25] MEDS ORDERED: ALBUTEROL HFA 8 GM INHALER INH PRN (00:03)
[2021-07-25] MEDS ORDERED: ACETAMINOPHEN 325 MG TAB PO PRN (00:03)
[2021-07-25] MEDS ORDERED: SODIUM CHLORIDE 0.9% 1000ML 1,000 ML IV SCH (00:03)
[2021-07-25] MEDS ORDERED: ONDANSETRON INJ 2 MG/ML 2 ML VIAL IV PRN (00:03)
[2021-07-25] MEDS: SODIUM CHLORIDE 0.9% 10ML FLUSH IV SCH ×2 (00:15→21:11)
[2021-07-25] MEDS ORDERED: GLUCAGON FOR INJ 1 MG VIAL IM PRN (00:15)
[2021-07-25] MEDS ORDERED: CARBOHYDRATES FOR HYPOGLYCEMIA PO PRN (00:15)
[2021-07-25] MEDS ORDERED: GLUCOSE 40% GEL 15 GM TUBE PO PRN (00:15)
[2021-07-25] MEDS ORDERED: DEXTROSE 50% 50 ML SYRINGE IV PRN (00:15)
[2021-07-25] MEDS ORDERED: GLUCOSE 10 TABS/TUBE PO PRN (00:15)
[2021-07-25] MEDS: ENOXAPARIN INJ 40 MG/0.4 ML SYR SQ SCH ×2 (01:32→20:13)
[2021-07-25] MEDS: BENZONATATE 100 MG CAPSULE PO SCH ×4 (01:33→20:13)
[2021-07-25] MEDS: dexAMETHasone 6 MG in SYRINGE 0 ML IV SCH ×2 (01:33→08:30)
[2021-07-25] MEDS: ATORVASTATIN 10 MG TAB PO SCH ×2 (01:33→20:14)
--- NOTE | 2021-07-25 06:27 | Electrocardiogram Report ---
Test Reason : Blood Pressure : / mmHG Vent. Rate : 088 BPM Atrial Rate : 088 BPM P-R Int : 130 ms QRS Dur : 098 ms QT Int : 352 ms P-R-T Axes : 032 018 026 degrees QTc Int : 425 ms Normal sinus rhythm Normal ECG When compared with ECG of 21-JUL-2021 15:23, No significant change was found Confirmed by Demond Greene ([id number]) on 07/25/2021 6:26:28 AM Referred By: REFERRED SELF Confirmed By:Demond Greene
[2021-07-25 07:15] LABS: Hemoglobin 13.7 g/dL (14.0-18.0); Mean Corpuscular Hemoglobin 30.4 pg (25-34); Mean Corpuscular Hgb Conc 33.4 g/dL (32-36); Mean Corpuscular Volume 90.9 fL (80-100); Mean Platelet Volume 10.2 fL (7.4-10.4); Platelet Count 239 K/uL (130-400); RDW Coefficient of Variation 12.9 % (11.5-14.5); Red Blood Count 4.51 M/uL (4.7-6.1); White Blood Count 5.57 K/uL (4.8-10.8)
[2021-07-25 07:43] LABS: Albumin Level 2.5 gm/dl (3.4-5.0); BUN Creatinine Ratio 25.4 (10-20); Calcium 8.3 mg/dl (8.5-10.1); Creatinine Clr Calc Pharmacy 122.5 ml/min; Est GFR (African American) 122.4 ml/min; Est GFR (Non-African American) 105.6 ml/min; Potassium 4.4 mmol/L (3.5-5.1)
[2021-07-25 07:46] LABS: Albumin Globulin Ratio 0.6 (0.9-2); Bilirubin,Total 0.4 mg/dl (0.2-1); Globulin 3.9 gm/dl (2.5-4.0); Total Protein 6.4 gm/dl (6.4-8.2)
[2021-07-25 09:02] LABS: Estimated Average Glucose 163 mg/dl; Hemoglobin A1C 7.3 % (4.5-5.6)
[2021-07-25] MEDS: INSULIN ASPART PER UNIT SC SCH ×2 (17:35→21:11)
--- NOTE | 2021-07-25 18:00 | Hospitalist Progress Note ---
Date of Service July 25, 2021 Assessment & Plan (1) Pneumonia due to COVID-19 virus: Plan: Started on remdesivir and Decadron and continues on this. Patient is unvaccinated. Continue conservative measures for support including antitussives and decongestants. (2) Hypoxia: Plan: -Secondary to Covid 19 pneumonia -As above (3) Diabetes type 2, controlled: Plan: -DM II -Maintained at home on Metformin and tresiba, will hold for now -Continue with Lantus started by admission team, added NovoLog especially in setting of hyperglycemia secondary to steroids that is anticipated. Continue to monitor (4) Hypertension: Plan: Elevated blood pressure on arrival likely situational, current blood pressure is at goal and patient is not on antihypertensives at home. (5) DVT prophylaxis: Plan: Lovenox Full code Disposition-to home when medically stable and off oxygen Heather Medina [facility] and Anticipated Discharge Date Admission Date: July 24, 2021 Subjective 51-year-old man admitted for Covid pneumonia Generalized malaise, does not feel well Slightly diaphoretic, not eating well secondary to infection Some cough present, no respiratory distress Review of Systems Review of Systems: All systems reviewed and negative except as indicated above. Physical Exam Physical Exam: CONSTITUTIONAL: WNWD, vitals as above, generally ill- appearing, NAD EYES: normal conjunctivae, no scleral icterus ENT: external ear and nose normal, MMM NECK: trachea midline RESPIRATORY: clear to auscultation bilaterally, no crackles, rales or wheezes, normal respiratory effort CARDIOVASCULAR: regular rate and rhythm, S1 and 2 heard without murmurs, gallops or rubs, no JVD, no peripheral edema CHEST: inspection of chest was normal GASTROINTESTINAL: soft, nontender, ND, no guarding MUSCULOSKELETAL: strength 5/5 throughout, head is normocephalic and atraumatic, neck supple, normal palpation of chest wall without tenderness SKIN: warm and dry NEUROLOGIC: CN 2-12 grossly intact, normal cognition, normal speech, shakiness present, especially evident when he puts his hands up to his face. PSYCHIATRIC: alert cooperative and oriented to person, place and time. Results & Data Results & Data ([facility]) Vital Signs (Past 12 Hours) Vital Signs Temp Pulse Pulse Resp BP Pulse Ox 07/25/21 14:49 36.6 C 80 18 138/86 90 07/25/21 12:56 92 07/25/21 07:50 36.8 C 78 18 117/76 92 07/25/21 07:00 85 Laboratory Results Short CBC 07/25/21 Range/Units 06:14 WBC 5.57 (4.8-10.8) K/uL Hgb 13.7 L (14.0-18.0) g/dL Hct 41.0 L (42-52) % Plt Count 239 (130-400) K/uL BMP 07/25/21 06:14 Sodium 139 Potassium 4.4 Chloride 106 Carbon Dioxide 26 BUN 19 H Creatinine 0.76 Glucose 198 H Calcium 8.3 L Liver Function 07/25/21 Range/Units 06:14 Total Bilirubin 0.4 (0.2-1) mg/dl AST 39 H (15-37) U/L ALT 55 (12-78) Alkaline Phosphatase 75 (45-117) U/L Albumin 2.5 L (3.4-5.0) gm/dl Medications Administered Current Inpatient Medications Acetaminophen (Acetaminophen 325 Mg Tab) 650 mg PO Q4H PRN PRN Reason: Moderate Pain Stop: 08/24/21 00:02 Albuterol (Albuterol Hfa 8 Gm Inhaler) 2 puffs INH Q4H PRN PRN Reason: shortness of breath or wheezing Stop: 08/24/21 00:02 Atorvastatin Calcium (Atorvastatin 10 Mg Tab) 10 mg PO QPM NORY Stop: 08/24/21 00:02 Last Admin: 07/25/21 01:33 Dose: 10 mg Documented by: Benzonatate (Benzonatate 100 Mg Capsule) 100 mg PO TID NORY Stop: 08/24/21 00:02 Last Admin: 07/25/21 13:37 Dose: 100 mg Documented by: Dextrose (Dextrose 50% 50 Ml Syringe) 25 - 50 ml IV UD PRN; Protocol PRN Reason: Hypoglycemia Protocol Stop: 08/24/21 00:14 Enoxaparin Sodium (Enoxaparin Inj 40 Mg/0.4 Ml Syr) 40 mg SQ HS [facility] Stop: 08/24/21 00:02 Last Admin: 07/25/21 01:32 Dose: 40 mg Documented by: Glucagon (Glucagon For Inj 1 Mg Vial) 1 mg IM UD PRN; Protocol PRN Reason: Hypoglycemia Protocol Stop: 08/24/21 00:14 Glucose (Glucose 40% Gel 15 Gm Tube) 15 - 30 gm PO UD PRN; Protocol PRN Reason: Hypoglycemia Protocol Stop: 08/24/21 00:14 Glucose (Glucose 10 Tabs/Tube) 4 - 8 tabs PO UD PRN; Protocol PRN Reason: Hypoglycemia Protocol Stop: 08/24/21 00:14 Hydrocodone Bit/Homatropine Methylb (Hydrocodone/Homatropine Syrup 5mg/1.5mg 5ml Udp) 5 ml PO Q6H PRN PRN Reason: Cough Stop: 08/07/21 15:29 Remdesivir 100 mg/ Sodium (Chloride) 250 mls @ 250 mls/hr IV Q24H NORY; Protocol Stop: 07/28/21 20:59 Dexamethasone 6 mg/ Syringe 1.5 mls @ 1 mls/min IV DAILY NORY Stop: 08/01/21 00:02 Last Admin: 07/25/21 08:30 Dose: 1 mls/min Documented by: Insulin Aspart (Insulin Aspart Per Unit) 0 units SC ACHS [facility] Stop: 08/24/21 16:29 Last Admin: 07/25/21 17:35 Dose: 3 units Documented by: Insulin Glargine (Insulin Glargine Solostar 100 Units/Ml 3 Ml Pen) 20 units SC HS [facility] Stop: 08/24/21 20:59 Miscellaneous (Carbohydrates For Hypoglycemia ) 15 - 30 gm PO UD PRN PRN Reason: Hypoglycemia Treatment Stop: 08/24/21 00:14 Ondansetron HCl (Ondansetron Inj 2 Mg/Ml 2 Ml Vial) 4 mg IV Q4H PRN PRN Reason: Nausea And Vomiting Stop: 08/24/21 00:02 Sodium Chloride (Sodium Chloride 0.9% 10ml Flush) 30 ml IV Q24H NORY Stop: 07/28/21 22:01 Last Admin: 07/25/21 00:15 Dose: Not Given Documented by:
[2021-07-25] MEDS: REMDESIVIR 100 MG in SODIUM CHLORIDE 0.9% 230 ML IV SCH (20:13)
[2021-07-25] MEDS ORDERED: INSULIN GLARGINE SOLOSTAR 100 UNITS/ML 3 ML PEN SC SCH (21:00)
[2021-07-25] MEDS ORDERED: LANTUS PER UNIT CHARGE SQ SCH (21:00)
[2021-07-25] MEDS: INSULIN GLARGINE SOLOSTAR 100 UNITS/ML 3 ML PEN SC SCH (21:08)
[2021-07-26 06:58] LABS: Hematocrit (blood only) 41.1 % (42-52); Hemoglobin 13.9 g/dL (14.0-18.0); Mean Corpuscular Hemoglobin 30.3 pg (25-34); Mean Corpuscular Hgb Conc 33.8 g/dL (32-36); Mean Corpuscular Volume 89.5 fL (80-100); Mean Platelet Volume 9.9 fL (7.4-10.4); Platelet Count 297 K/uL (130-400); RDW Coefficient of Variation 12.5 % (11.5-14.5); RDW Standard Deviation 40.9 fL (36.4-46.3); Red Blood Count 4.59 M/uL (4.7-6.1); White Blood Count 6.52 K/uL (4.8-10.8)
[2021-07-26 07:29] LABS: Albumin Level 2.4 gm/dl (3.4-5.0); BUN Creatinine Ratio 25.8 (10-20); C Reactive Protein 4.4 mg/dl (0-0.29); Calcium 8.7 mg/dl (8.5-10.1); Creatinine Clr Calc Pharmacy 131.1 ml/min; Est GFR (African American) 125.9 ml/min; Est GFR (Non-African American) 108.6 ml/min; Potassium 4.2 mmol/L (3.5-5.1)
[2021-07-26 07:31] LABS: Albumin Globulin Ratio 0.6 (0.9-2); Bilirubin,Total 0.5 mg/dl (0.2-1); Globulin 3.8 gm/dl (2.5-4.0); Phosphorus 2.8 mg/dl (2.5-4.9); Total Protein 6.2 gm/dl (6.4-8.2)
[2021-07-26] MEDS: BENZONATATE 100 MG CAPSULE PO SCH ×3 (09:00→20:06)
[2021-07-26] MEDS: dexAMETHasone 6 MG in SYRINGE 0 ML IV SCH (09:01)
[2021-07-26] MEDS: INSULIN ASPART PER UNIT SC SCH ×4 (09:13→21:08)
--- NOTE | 2021-07-26 10:59 | Hospitalist Progress Note ---
Date of Service July 26, 2021 Assessment & Plan (1) Pneumonia due to COVID-19 virus: Plan: Started on remdesivir and Decadron Patient is unvaccinated. Continue dexamethasone and remdesivir Continue conservative measures for support including antitussives and de congestants. Currently on 2 L/min nasal cannula. See oxygen supplementation and wean as tolerated. Educated on self proning. Continue incentive spirometry and flutter. (2) Hypoxia: Plan: -Secondary to Covid 19 pneumonia -As above (3) Diabetes type 2, controlled: Plan: -DM II -Maintained at home on Metformin and tresiba, will hold for now -Continue with Lantus started by admission team, added NovoLog especially in setting of hyperglycemia secondary to steroids that is anticipated. Continue to monitor (4) Hypertension: Plan: Elevated blood pressure on arrival likely situational, current blood pressure is at goal and patient is not on antihypertensives at home. (5) DVT prophylaxis: Plan: Lovenox Full code Disposition-to home when medically stable and off oxygen If successfully weaned off oxygen, may be able to be discharged in the next day or 2 Admission and Anticipated Discharge Date Admission Date: July 24, 2021 Subjective 51-year-old man being managed for acute hypoxic respiratory failure due to COVID-19 pneumonia. Patient seen and examined this morning. Reports shortness of breath especially with activity. Denies cough this morning. Denies chest pain, nausea, vomiting Reports malaise. Denies headache or dizziness Denies diarrhea, abdominal pain. Reports appetite is fair. Denies fevers, chills, Denies dysuria, frequency, urgency, hematuria Physical Exam Constitutional: + well hydrated; no acute distress Eyes: PERRL, conjunctivae normal, anicteric sclerae ENMT: external ear and nose normal, oropharynx normal Respiratory: On 2 L/min nasal oxygen, good air entry, no crackles Cardiovascular: RRR. S1-S2 Gastrointestinal (Abdomen): normal bowel sounds, soft, nontender, no hepatosplenomegaly Musculoskeletal: no cyanosis or clubbing, extremities motor strength 5/5 Neurologic: PERRL, EOMI, accommodation nl, no face palsy, no dysarthria Psychiatric: A+Ox3, euthymic affect Results & Data Results & Data ([facility]) Vital Signs (Past 12 Hours) Vital Signs Temp Pulse Resp BP Pulse Ox 07/26/21 08:12 36.7 C 58 L 20 117/73 90 Laboratory Results Abnormal lab results 07/25/21 07/25/21 07/25/21 Range/Units 11:41 16:30 20:39 RBC (4.7-6.1) M/uL Hgb (14.0-18.0) g/dL Hct (42-52) % Chloride (98-107) mmol/L BUN/Creatinine Ratio (10-20) Glucose (70-99) mg/dl POC Glucose 206 H 199 H 221 H (70-99) mg/dl C-Reactive Protein (0-0.29) mg/dl Total Protein (6.4-8.2) gm/dl Albumin (3.4-5.0) gm/dl Albumin/Globulin Ratio (0.9-2) 07/26/21 07/26/21 07/26/21 Range/Units 06:28 06:28 07:40 RBC 4.59 L (4.7-6.1) M/uL Hgb 13.9 L (14.0-18.0) g/dL Hct 41.1 L (42-52) % Chloride 108 H (98-107) mmol/L BUN/Creatinine Ratio 25.8 H (10-20) Glucose 179 H (70-99) mg/dl POC Glucose 154 H (70-99) mg/dl C-Reactive Protein 4.40 H (0-0.29) mg/dl Total Protein 6.2 L (6.4-8.2) gm/dl Albumin 2.4 L (3.4-5.0) gm/dl Albumin/Globulin Ratio 0.6 L (0.9-2)
[2021-07-26] MEDS: REMDESIVIR 100 MG in SODIUM CHLORIDE 0.9% 230 ML IV SCH (20:04)
[2021-07-26] MEDS: ENOXAPARIN INJ 40 MG/0.4 ML SYR SQ SCH (20:07)
[2021-07-26] MEDS: ATORVASTATIN 10 MG TAB PO SCH (20:07)
[2021-07-26] MEDS: INSULIN GLARGINE SOLOSTAR 100 UNITS/ML 3 ML PEN SC SCH (21:09)
[2021-07-26] MEDS: SODIUM CHLORIDE 0.9% 10ML FLUSH IV SCH (21:45)
[2021-07-27 07:26] LABS: Hematocrit (blood only) 40.8 % (42-52); Hemoglobin 14.1 g/dL (14.0-18.0); Mean Corpuscular Hemoglobin 30.5 pg (25-34); Mean Corpuscular Hgb Conc 34.6 g/dL (32-36); Mean Corpuscular Volume 88.1 fL (80-100); Mean Platelet Volume 10.1 fL (7.4-10.4); Platelet Count 353 K/uL (130-400); RDW Coefficient of Variation 12.3 % (11.5-14.5); RDW Standard Deviation 39.8 fL (36.4-46.3); Red Blood Count 4.63 M/uL (4.7-6.1)
[2021-07-27 08:00] LABS: Albumin Level 2.6 gm/dl (3.4-5.0); BUN Creatinine Ratio 31.1 (10-20); C Reactive Protein 1.7 mg/dl (0-0.29); Calcium 8.9 mg/dl (8.5-10.1); Creatinine Clr Calc Pharmacy 131.1 ml/min; Est GFR (African American) 125.9 ml/min; Est GFR (Non-African American) 108.6 ml/min; Potassium 3.7 mmol/L (3.5-5.1)
[2021-07-27 08:03] LABS: Albumin Globulin Ratio 0.7 (0.9-2); Bilirubin,Total 0.5 mg/dl (0.2-1); Globulin 3.6 gm/dl (2.5-4.0); Total Protein 6.2 gm/dl (6.4-8.2)
[2021-07-27] MEDS: INSULIN ASPART PER UNIT SC SCH ×2 (08:52→13:03)
[2021-07-27] MEDS: BENZONATATE 100 MG CAPSULE PO SCH ×2 (09:41→13:36)
[2021-07-27] MEDS: dexAMETHasone 6 MG in SYRINGE 0 ML IV SCH (09:42)
--- NOTE | 2021-07-27 12:56 | Discharge Summary ---
Date of Service July 27, 2021 Admission HPI Per Admitting Provider This is a 51-year-old male with PMHx of DM type II, HTN, HLD, who presented to the ER on 07/21/2002/02/2021 and found to be Covid-19 positive. He is unvaccinated. At that point time he was hypoxic with O2 sats in the low 90s and was able to be sent home on 2 L. He was also given an albuterol inhaler along with a dexamethasone pack. He last took steroid yesterday. Despite these measures, the patient has continued to decline, now O2 sats are maintaining at 87-89% on 2L in the ER. He developed symptoms on Jul 19 which included, weakness, nausea, loss of taste and smell, and lightheadedness, dizziness, but denies falls. He has poor oral intake, but is urinating without issues. He admits to having diarrhea x 1 day. He lives at home with his who does not have any symptoms. Denies any prior lung diseases. Was wearing oxygen at home, and using albuterol inhaler but didn't seem to improve his symptoms. He was prescribed dexamethasone pack on the , last dose was yesterday. Admission Exam Per Admitting Provider On examination Lying in bed with extreme tiredness and fatigue Minimal shortness of breath at rest Chest-decreased breath sounds bilaterally especially at the bases with minimal crackles Heart-S1-S2, regular Extremities-no edema Abdomen-benign CNSalert, awake and oriented x3. Generally weak but no focal sensory no motor deficit appreciated Principal Diagnosis Acute hypoxic respiratory failure COVID 19 pneumonia Discharge Exam Constitutional + well hydrated; no acute distress Eyes PERRL, conjunctivae normal, anicteric sclerae ENMT external ear and nose normal, oropharynx normal Respiratory normal respiratory effort, lungs clear to auscultation Cardiovascular RRR S1 S2 Gastrointestinal (Abdomen) normal bowel sounds, soft, nontender, no hepatosplenomegaly Musculoskeletal no cyanosis or clubbing, extremities motor strength 5/5 Neurologic PERRL, EOMI, accommodation nl, no face palsy, no dysarthria Psychiatric A+Ox3, euthymic affect Discharge Data Allergies Allergy/AdvReac Type Severity Reaction Status Date / Time No Known Allergies Allergy Unverified 06/16/21 09:59 Consultations 07/24/21 14:35 ED Decision to Admit Stat Hospital Course (1) Hypoxia: (2) Pneumonia due to COVID-19 virus: Was started on remdesivir and Decadron Patient is unvaccinated. Treated with conservative measures for support including antitussives and decongestants. Required oxygen briefly Was successfully weaned off 2 Step today does not indicate any oxygen requirement Provided COVID 19 education, home isolation instructions and advised to get vaccinated once fully recovered (3) Diabetes type 2, controlled: -DM II Continue home Metformin and tresiba (4) Hypertension: Elevated blood pressure on arrival likely situational, current blood pressure is at goal and patient is not on antihypertensives at home. Total Time Total Time Spent Total Time Spent (In Minutes): 45 Discharge Plan Discharge Items Patient Disposition: Home - Self-Care Reason For Visit: COVID-19 PNEUMONIA Discharge Diagnosis: Acute hypoxic respiratory failure COVID 19 pneumonia Activity: Resume your previous activity Non-emergency contact: Primary Care Provider Call non-emergency contact if: you have any medication questions and your symptoms worsen Follow-up/Referrals: Omar Lee MD [Primary Care Provider] - Diet: Carb Consistent or DM2 and Heart Healthy Katina Attending Provider Instructions: Mr Loyd Hyde were admitted to the hospital for low oxygen level due to COVID 19 pneumonia. You were started on treatment and oxygen supplementation. Your symptoms improved and you were weaned off oxygen. You are being discharged home. Please ensure follow up with your Primary Doctor Please ensure you adhere to home isolation precautions as we discussed. It was a pleasure taking care of you. Addtl [employer] Provider Instructions: Home Isolation COVID-19 Instructions The following information about Home Isolation is from the CDC Website: https://www.cdc.gov/coronavirus/2019-ncov/hcp/njfnafjh-tncvftg-uokmns.html Stay home except to get medical care People who are mildly ill with COVID-19 are able to isolate at home during their illness. You should restrict activities outside your home, except for getting medical care. Do not go to work, school, or public areas. Avoid using public transportation, ride-sharing, or taxis. Separate yourself from other people and animals in your home People: As much as possible, you should stay in a specific room and away from other people in your home. Also, you should use a separate bathroom, if available. Animals: You should restrict contact with pets and other animals while you are sick with COVID-19, just like you would around other people. Although there have not been reports of pets or other animals becoming sick with COVID-19, it is still recommended that people sick with COVID-19 limit contact with animals until more information is known about the virus. When possible, have another member of your household care for your animals while you are sick. If you are sick with COVID-19, avoid contact with your pet, including petting, snuggling, being kissed or licked, and sharing food. If you must care for your pet or be around animals while you are sick, wash your hands before and after you interact with pets and wear a face mask. Call ahead before visiting your doctor If you have a medical appointment, call the healthcare provider and tell them that you have or may have COVID-19. This will help the healthcare providers office take steps to keep other people from getting infected or exposed. Wear a face mask You should wear a face mask when you are around other people (e.g., sharing a room or vehicle) or pets and before you enter a healthcare providers office. If you are not able to wear a face mask (for example, because it causes trouble breathing), then people who live with you should not stay in the same room with you, or they should wear a face mask if they enter your room. Cover your coughs and sneezes Cover your mouth and nose with a tissue when you cough or sneeze. Throw used tissues in a lined trash can. Immediately wash your hands with soap and water for at least 20 seconds or, if soap and water are not available, clean your hands with an alcohol-based hand weighmaster that contains at least 60% alcohol. Clean your hands often Wash your hands often with soap and water for at least 20 seconds, especially after blowing your nose, coughing, or sneezing; going to the bathroom; and before eating or preparing food. If soap and water are not readily available, use an alcohol-based hand weighmaster with at least 60% alcohol, covering all surfaces of your hands and rubbing them together until they feel dry. Soap and water are the best option if hands are visibly dirty. Avoid touching your eyes, nose, and mouth with unwashed hands. Avoid sharing personal household items You should not share dishes, drinking glasses, cups, eating utensils, towels, or bedding with other people or pets in your home. After using these items, they should be washed thoroughly with soap and water. Clean all high-touch surfaces everyday High touch surfaces include counters, tabletops, doorknobs, bathroom fixtures, toilets, phones, keyboards, tablets, and bedside tables. Also, clean any surfaces that may have blood, stool, or body fluids on them. Use a household cleaning spray or wipe, according to the label instructions. Labels contain instructions for safe and effective use of the cleaning product including precautions you should take when applying the product, such as wearing gloves and making sure you have good ventilation during use of the product. Monitor your symptoms Seek prompt medical attention if your illness is worsening (e.g., difficulty breathing).Beforeseeking care, call your healthcare provider and tell them that you have, or are being evaluated for, COVID-19. Put on a face mask before you enter the facility. These steps will help the healthcare providers office to keep other people in the office or waiting room from getting infected or expo sed. Ask your healthcare provider to call the local or state health department. Persons who are placed under active monitoring or facilitated self-monitoring should follow instructions provided by their local health department or occupational health professionals, as appropriate. When working with your local health department check their available hours. If you have a medical emergency and need to call 911, notify the dispatch personnel that you have, or are being evaluated for COVID-19. If possible, put on a face mask before emergency medical services arrive. Discontinuing home isolation Patients with confirmed COVID-19 should remain under home isolation precautions until the risk of secondary transmission to others is thought to be low. The decision to discontinue home isolation precautions should be made on a [id number] basis, in consultation with healthcare providers and state and local health departments. Pending Studies at Discharge: No Stand-Alone Forms: [facility], Smoking Cessation Medications and DC Order Prescriptions: Continued metformin 1,000 mg tablet 1,000 mg PO BID RF: 0 (DME) [employer] meter 0 .ROUTE .MEDSUPPLY RF: 0 (DME) pen needle, diabetic [BD Ultra-Fine Tnoya Pen Needle] 32 gauge x 5/32" needle See Rx Instructions miscellaneous .MEDSUPPLY Qty: 100 RF: 3 Tresiba FlexTouch U-100 100 unit/mL (3 mL) insulin pen 10 unit subcut DAILY RF: 0 atorvastatin 10 mg tablet 10 mg PO QPM RF: 0 Hold Instructions: not taking albuterol sulfate 90 mcg/actuation HFA aerosol inhaler 2 puffs INH Q4H PRN (Reason: shortness of breath or wheezing) Qty: 8 RF: 0 Discontinued dexamethasone 6 mg tablet 6 mg PO DAILY Qty: 10 RF: 0 Discharge Orders: Discharge Order (Routine); Ordered 07/27/21 Ordered By: Taisha Baker/Other Patient Handouts: COVID-19 Home Care, Managing Type 2 Diabetes Admission Data Admit Date/Time: 07/24/21 15:10 Attending Provider: Taisha Workman I. Admit Provider: eVe Bunn Primary Care Provider: Omar Lee Other Providers: Vee Bunn ; Heather Medina Other Interventions: Discharge Summary Assessment (RN) Last Done: 07/27/21 13:08
== END 2021-07-27 13:54 | disposition home or self-care (01) | DRG 177 ==
LOC: ED 12:28 → SUATTDRO 15:10 → EDINP 15:10 → 2W 22:54 → 3W 07-26 12:47